=== PATIENT | male | born 1985 | race Asian ===

== ENCOUNTER 2016-09-16 12:26 | Emergency (ER) | payer OTHER ==
[~2016-09-16] VITALS: Ht 167.6 cm; Wt 86.7 kg
[2016-09-16 12:38] VITALS: BP 150/91
[2016-09-16 13:55] LABS: BASOPHIL % 0.4 % (0-2); PLATELET COUNT 211 x10^3mcL (130-400); RED CELL DISTRIBUTION WIDTH 13.8 % (11.5-14.5)
[2016-09-16 14:00] LABS: CALCIUM 8.9 mg/dL (8.5-10.1); CARBON DIOXIDE 31.8 mmol/L (21-32); CHLORIDE SERUM 106 mmol/L (98-107); CREATININE SERUM 1.1 mg/dL (0.7-1.3); GFR1 > 60 mL/min; GLUCOSE SERUM 120 mg/dL (74-106); POTASSIUM SERUM 4.3 mmol/L (3.5-5.1); SODIUM SERUM 143 mmol/L (136-145)
[2016-09-16 14:11] LABS: ALBUMIN 3.5 g/dL (3.4-5.0); ALKALINE PHOSPHATASE 55 U/L (46-116); ALT/SGPT 32 U/L (16-63); AMYLASE 51 U/L (25-115); AST/SGOT 14 U/L (15-37); BILIRUBIN TOTAL 0.57 mg/dL (0.20-1.00); HDL CHOLESTEROL 53 mg/dL (40-60); LIPASE 95 IU/L (73-393); TOTAL PROTEIN, SERUM 7.2 g/dL (6.4-8.2)
[2016-09-16 14:12] LABS: CHOLESTEROL 203 mg/dL (<200)
[2016-09-16 15:30] LABS: microscopic required? NO
[2016-09-16 15:42] LABS: UA SPECIFIC GRAVITY 1.025 (1.005-1.035); urine erythrocyte NEGATIVE (NEGATIVE)
== END 2016-09-16 16:51 | disposition home or self-care (01) ==
LOC: ED 12:26
PROVIDERS: Emergency Medicine
DX: R10.11 Right upper quadrant pain (principal); I45.10 Unspecified right bundle-branch block
CPT/HCPCS: 83880; J1885; J7030; Q0092

== ENCOUNTER 2020-04-01 19:44 | Emergency (ER) | payer OTHER ==
[~2020-04-01] VITALS: Ht 167.6 cm; Wt 95.3 kg
[2020-04-01 20:04] VITALS: Ht 167.6 cm; Wt 95.3 kg
[2020-04-01 22:28] VITALS: BP 180/124
== END 2020-04-01 22:28 | disposition home or self-care (01) ==
LOC: ED 19:44
DX: I10 Essential (primary) hypertension (principal)